=== PATIENT | female | born 1940 | race Caucasian/White ===

== ENCOUNTER 2017-01-30 08:06 | Emergency (ER) | payer BC ==
[~2017-01-30] VITALS: Ht 175.3 cm; Wt 83.9 kg
[2017-01-30 08:31] VITALS: BP 187/89
--- NOTE | 2017-01-30 08:46 | PHYS DOC ---
Past Medical History Past Medical History: Hypertension Additional Past Medical Histor: REFLUX, FIBROID CYSTS Past Surgical History: Hysterectomy Additional Past Surgical Histo: WRIST PLATE PLACED, CYST REMOVAL, CATERACTS Alcohol Use: None Drug Use: None Adult General Chief Complaint Chief Complaint: KNEE INJURY [facility] HPI Patient is a 76 year old female presents to the emergency department stating 3: 00 this morning she rolled over and twisted her left knee. She states that she is having pain with movement when she bends the knee and the posterior region of the knee. She also states originally she was having pain in the anterior lateral area at this time that pain has subsided. She denies taking anything for the pain and discomfort. She has however started using a walker to help with ambulation due to increased pain with weightbearing. Patient denies any numbness or tingling down to the lower extremity. She denies any previous history of knee problems. She denies having an orthopedic in which she can follow-up with. Review of Systems Review of Systems Constitutional: Denies fever or chills [] Eyes: Denies change in visual acuity, redness, or eye pain [] HENT: Denies nasal congestion or sore throat [] Respiratory: Denies cough or shortness of breath [] Cardiovascular: No additional information not addressed in HPI [] GI: Denies abdominal pain, nausea, vomiting, bloody stools or diarrhea [] : Denies dysuria or hematuria [] Musculoskeletal: Denies back pain. Complaint of left knee pain Integument: Denies rash or skin lesions [] Neurologic: Denies headache, focal weakness or sensory changes [] Endocrine: Denies polyuria or polydipsia [] Allergies Allergies Allergies Coded Allergies Type Severity Reaction Last Updated Verified No Known Drug Allergies 01/30/17 No Physical Exam Physical Exam Constitutional: Well developed, well nourished, no acute distress, non-toxic appearance. [] HENT: Normocephalic, atraumatic, bilateral external ears normal, oropharynx moist, no oral exudates, nose normal. [] Eyes: PERRLA, EOMI, conjunctiva normal, no discharge. [] Neck: Normal range of motion, no tenderness, supple, no stridor. [] Cardiovascular:Heart rate regular rhythm, no murmur [] Lungs & Thorax: Bilateral breath sounds clear to auscultation [] Skin: Warm, dry, no erythema, no rash. [] Back: No tenderness Extremities: Left posterior knee tenderness, no cyanosis, no clubbing, ROM intact, no edema. No swelling no discoloration noted around the knee area. Patient with full range of motion noted negative Stephanie been negative Leroy negative valgus. Peripheral pulses 2+ cap refill brisk less than 2 seconds. Good sensation noted to the lower extremity. Neurologic: Alert and oriented X 3, normal motor function, normal sensory function, no focal deficits noted. [] Psychologic: Affect normal, judgement normal, mood normal. [] Current Patient Data Vital Signs Vital Signs Date Time Temp Pulse Resp B/P (MAP) Pulse Ox O2 Delivery O2 Flow Rate FiO2 01/30/17 08:31 97.8 86 14 96 Room Air 97.8 EKG EKG [] Radiology/Procedures Radiology/Procedures [][facility] [address] [place] [address] IMAGING REPORT Signed PATIENT: DONN GARAY ACCOUNT: [id number] : 1940 LOCATION: ER AGE: 76 SEX: F EXAM STATUS: REG ER ORD. PHYSICIAN: SACHI LOPEZ APRN REASON: twisted left knee, ENTIRE LEFT KNEE PAIN SINCE 0400 THIS MORNING PROCEDURE: KNEE LEFT 4V Left knee, 4 views, 01/30/2017: History: Twisting injury, knee pain No fracture or dislocation is identified. There is minimal marginal spurring at the knee joint. There are mild degenerative changes at the patellofemoral articulation. No joint effusion is evident. IMPRESSION: 1. Mild degenerative change. 2. No acute bony abnormality is detected. DICTATED and SIGNED BY: SHAUN ALVA MD DATE: 01/30/17 0902 CC: SACHI LOPEZ APRN; KISHORE MEDELLIN MD; NON,STAFF ~ Course & Med Decision Making Course & Med Decision Making Pertinent Labs and Imaging studies reviewed. (See chart for details) X-ray was negative per radiology. Patient will be placed in a knee immobilizer with recommendations for ice packs on 20 minutes off 20 minutes several times today. Elevation as much as possible. Patient will be provided with orthopedic name and number to follow up with. Signs and symptoms to return back to emergency department been provided. Patient will be discharged home in stable condition. All questions and concerns for the patient been answered at the bedside. [] Karly Disclaimer Dragon Disclaimer This electronic medical record was generated, in whole or in part, using a voice recognition dictation system. Departure Departure Impression: Primary Impression: Left knee sprain Disposition: HOME, SELF-CARE Condition: STABLE Referrals: KISHORE MEDELLIN MD (PCP) ALBERTO HAIRSTON MD Patient Instructions: Knee Immobilizer, Kejw-mz-Fcpr, Knee Pain, Yqvb-fu-Ffli Additional Instructions: Activity as tolerated. Tylenol or ibuprofen for pain and discomfort. Wear the knee immobilizer until you follow-up with orthopedic. You may take the knee out of the immobilizer four times a day and to gentle active range of motion. Ice packs on 20 minutes off 20 minutes several times a day. Elevation as much as possible. Follow-up with orthopedic in the next week. Return back to emergency department sign symptoms of become worse. Problem Qualifiers Primary Impression: Left knee sprain Encounter type: initial encounter Involved ligament of knee: unspecified ligament Qualified Codes: S83.92XA - Sprain of unspecified site of left knee, initial encounter SACHI LOPEZ APRN Jan 30, 2017 08:46
--- NOTE | 2017-01-30 09:05 | RAD ---
Left knee, 4 views, 01/30/2017: History: Twisting injury, knee pain No fracture or dislocation is identified. There is minimal marginal spurring at the knee joint. There are mild degenerative changes at the patellofemoral articulation. No joint effusion is evident. IMPRESSION: 1. Mild degenerative change. 2. No acute bony abnormality is detected.
== END 2017-01-30 09:33 | disposition home or self-care (01) ==
LOC: ER 08:06
DX: S93.402A Sprain of unspecified ligament of left ankle, initial encounter (principal); I10 Essential (primary) hypertension; Z90.710 Acquired absence of both cervix and uterus; K21.9 Gastro-esophageal reflux disease without esophagitis; X50.9XXA Other and unspecified overexertion or strenuous movements or postures, initial encounter; Y93.89 Activity, other specified; Y99.8 Other external cause status; Y92.89 Other specified places as the place of occurrence of the external cause
CPT/HCPCS: 29505; 73564; 99284-25

== ENCOUNTER → 2017-05-31 | Outpatient (CLI) | payer BC ==
--- NOTE | 2017-05-31 12:17 | KCIC ---
Bone mineral density exam History: Osteopenia, postmenopausal Comparison: None Findings: Bone mineral density examination utilizing DEXA was performed. Left hip bone mineral density of 0.753 g/cm2 corresponds with a T score -1.5, Z score 0.4. The bone mineral density of the lumbar spine was 0.980 g/cm2 which corresponds with a T-score of -0.6, Z score 1.9. By World Congress on Osteoporosis criteria, a T score of 0 to-1 SD is considered to be within normal limits. A T score of -1 to -2.5 SD is considered osteopenia. A T score less than -2.5 SD is considered osteoporosis Impression: 1. There is osteopenia of the left hip. There is normal bone density of the lumbar spine. Electronically signed by: Nile Gadrner MD (05/31/2017 12:14 PM) [id number]
== END | disposition home or self-care (01) ==
LOC: KCIC DEXA 10:40
PROVIDERS: ATTEND Family Medicine
DX: M85.80 Other specified disorders of bone density and structure, unspecified site (principal); Z78.0 Asymptomatic menopausal state
CPT/HCPCS: 77080

== ENCOUNTER 2017-10-09 17:03 | Emergency (ER) | payer BC ==
[2017-10-09] MEDS: KETOROLAC 60 MG/2 ML INJ. IM (18:30)
[2017-10-09] MEDS: ONDANSETRON ODT 4 MG TAB.RAPDIS. PO (18:31)
[2017-10-09] MEDS: cloNIDine HCL 0.1 MG TABLET PO (18:32)
== END 2017-10-09 19:55 | disposition home or self-care (01) ==
LOC: ER 17:03
DX: M54.32 Sciatica, left side (principal); R11.2 Nausea with vomiting, unspecified; K21.9 Gastro-esophageal reflux disease without esophagitis; I10 Essential (primary) hypertension; Z90.710 Acquired absence of both cervix and uterus
CPT/HCPCS: 96372; 99283-25; J1885; Q0162

== ENCOUNTER → 2017-10-12 | Outpatient (CLI) | payer BC | END | disposition home or self-care (01) | LOC: ECHO 07:48 | DX: R01.1 Cardiac murmur, unspecified (principal) | CPT/HCPCS: 93306 ==

== ENCOUNTER → 2019-07-05 | Outpatient (CLI) | payer BC ==
[2017-10-09 18:32] VITALS: BP 203/96
[~2019-07-05] MED LIST: METH4TAB2 PO; ONDA4TAB10 SL
--- NOTE | 2019-07-05 10:26 | RAD ---
Examination: DIGITAL DIAGNOSTIC RT, US GUID NDL PLACE/ASPI/BX History: Right breast mass. Comparison/Correlation: 05/29/2019 right breast ultrasound exam performed at diagnostic imaging centers Findings: Risks and benefits of ultrasound-guided core biopsy were discussed with patient and informed consent was obtained. ChloraPrep was utilized about the right upper breast and periareolar region. Sterile drapes were utilized. Sterile probe cover and sterile gel visualized. Approximately 5 cc 1 percent lidocaine was administered superomedial to the lesion and along its lateral aspect. Introducer was placed. 14-gauge core biopsy needle was utilized. Total of 5 passes were made into the 12:00 mass with ultrasound guidance. Samples were placed in a formalin jar. Biopsy clip marker was then placed into the mass. Patient had a mild amount of bleeding during the exam. MLO and CC images of the right breast were obtained and reviewed on an mammography workstation. Biopsy clip marker is present within the mass the right breast 12:00 region. No hematoma identified. Impression: Successful ultrasound-guided right breast mass biopsy with clip marker placement. Electronically signed by: Boone Lloyd MD (07/05/2019 10:24 AM) [facility]
--- NOTE | 2019-07-09 13:07 | PATHOLOGY ---
[facility] Accession Number: [id number] . 01 Material submitted: . breast - RIGHT BREAST TISSUE 12:00 3CMFN. Modifiers: right, 12:00 . 01 Clinical history: . Right breast mass . 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 - SIZE OF INVASIVE CARCINOMA: 1.5 CM, AT LEAST. - POSSIBLE TINY FOCUS OF CRIBRIFORM DUCTAL CARCINOMA IN SITU. - Microcalcification present focally in association with invasive carcinoma. . (Please see comment) LBQ 07/08/2019 1021 Local . 02 Comment: The findings in this case were relayed to Sylvia at Dr. Charlie Dozier's office on 07/08/2019. . This case has also been reviewed by Kerline Malone M.D. who agrees with the diagnosis. . The tumor present in block A1 will be sent for breast prognostic studies. The results will be issued in an addendum report. (SKM/db; 07/08/2019) . 02 Electronically signed: . Nitesh Dykes MD, Pathologist NPI- [id number] . 01 Gross description: . Received in formalin labeled "Layla Loo, right breast 12:00 3 cm FN," are 5 distinct needle cores of yellow-alexander fibrofatty tissue ranging from 0.5-1.7 cm in length and approximately 0.1 cm in diameter. The tissue is submitted in its entirety in cassette A1-A3. The cold ischemic time is 5 minutes. The total formalin fixation time is greater than 6 hours and less than 72 hours. (TSD; 07/05/2019) TOB/TOB 07/05/2019 1806 Local . 02 Pathologist provided ICD-10: C50.911 . 02 CPT . 478790 Specimen Comment: A courtesy copy of this report has been sent to [phone], [phone] Specimen Comment: [id number], Specimen Comment: Report sent to , and Performed at: [address] [facility], [place] [id number] MD Salvador Nassar MD Phone: [phone] Performed at: [facility] [address], [place] [id number] MD Venkat Ayala MD Phone: [phone]
== END | disposition home or self-care (01) ==
LOC: US 13:16
PROVIDERS: ATTEND Surgery
DX: N63.10 Unspecified lump in the right breast, unspecified quadrant (principal); D05.11 Intraductal carcinoma in situ of right breast; R92.8 Other abnormal and inconclusive findings on diagnostic imaging of breast; R92.0 Mammographic microcalcification found on diagnostic imaging of breast
CPT/HCPCS: 19083; 77065; C1713; 19081; 76942

== ENCOUNTER → 2019-07-23 | Outpatient (CLI) | payer BC ==
[2017-10-09 18:32] VITALS: BP 203/96
[~2019-07-23] MED LIST changes: +CALC1CAP6 PO; +CART1TAB4 PO; +CELE200C PO; +CHOL500062 PO; +CRAN250C PO; +FERR-36 PO; +HYDR-2761 PO; +LACT1CAP6 PO; +LISI-334 PO; +OMEG100021 PO; +OMEP40CA45 PO
--- NOTE | 2019-07-23 15:10 | RAD ---
DATE: July 23, 2019 EXAM: DIGITAL DIAGNOSTIC LT, BREAST LEFT SONOGRAPHY HISTORY: History of right breast cancer. Density of the upper aspect of left breast. COMPARISON: May 29, 2019 and May 09, 2018. This study was interpreted with the benefit of Computerized Aided Detection (CAD). DIAGNOSTIC LEFT-SIDED MAMMOGRAPHY FINDINGS: Focal digital compression views of the left breast were performed in the CC and MLO projections. Coarse benign-appearing calcifications are again evident within the upper aspect of the left breast which are stable. No mass or spiculation or architectural distortion is seen. LEFT BREAST SONOGRAPHY: High-resolution sonography of the upper one half of the left breast was performed. No focal sonographic abnormality is seen. Sonography of the left axillary region was performed and no abnormality is seen. IMPRESSION: No new mammographic abnormality of the left breast. No focal sonographic abnormality of the upper left breast. BI-RADS CATEGORY: 2 BENIGN FINDING RECOMMENDED FOLLOW-UP: 12M 12 MONTH FOLLOW-UP Note-the patient has history of right breast cancer which is scheduled to be treated next week. Therefore, this BI-RADS category 2 is for the left breast only. Therefore, the recommended follow-up is for the left breast as well. Follow-up of the right breast may be different. PQRS compliance statement: Patient information was entered into a reminder system with a target due date May 30, 2020 for the next mammogram. Mammography is a sensitive method for finding small breast cancers, but it does not detect them all and is not a substitute for careful clinical examination. A negative mammogram does not negate a clinically suspicious finding and should not result in delay in biopsying a clinically suspicious abnormality. "Our facility is accredited by the [employer] Mammography Program."
== END | disposition home or self-care (01) ==
LOC: MAMMO 15:21
PROVIDERS: ATTEND Radiology Radiation Oncology
DX: R92.1 Mammographic calcification found on diagnostic imaging of breast (principal); Z85.3 Personal history of malignant neoplasm of breast
CPT/HCPCS: 76641; 77065

== ENCOUNTER → 2019-07-24 | Outpatient (CLI) | payer BC ==
[2017-10-09 18:32] VITALS: BP 203/96
[2019-07-24 13:42] LABS: BASO # 0.1 x10^3/uL (0.0-0.2); BASO % 1 % (0-3); EOS # 0.1 x10^3/uL (0.0-0.7); EOS % 1 % (0-3); HEMATOCRIT 38.6 % (36.0-47.0); HEMOGLOBIN 12.8 g/dL (12.0-15.5); LYMPH # 1.6 x10^3/uL (1.0-4.8); LYMPH % 21 % (24-48); MEAN CORPUSCULAR HEMOGLOBIN 31 pg (25-35); MEAN CORPUSCULAR HGB CONC 33 g/dL (31-37); MEAN CORPUSCULAR VOLUME 94 fL (79-100); MONO # 0.5 x10^3/uL (0.0-1.1); MONO % 6 % (0-9); NEUT # 5.3 x10^3/uL (1.8-7.7); NEUT % 70 % (31-73); PLATELET COUNT 253 x10^3/uL (140-400); RED BLOOD COUNT 4.13 x10^6/uL (3.50-5.40); WHITE BLOOD COUNT 7.6 x10^3/uL (4.0-11.0)
[2019-07-24 13:52] LABS: ALBUMIN 3.7 g/dL (3.4-5.0); CALCIUM 9.1 mg/dL (8.5-10.1); CREATININE 0.9 mg/dL (0.6-1.0); GFR 60.4; POTASSIUM 4.1 mmol/L (3.5-5.1)
== END | disposition home or self-care (01) ==
LOC: SURGPAT 12:36
PROVIDERS: ATTEND Surgery
DX: Z01.818 Encounter for other preprocedural examination (principal); C50.911 Malignant neoplasm of unspecified site of right female breast
CPT/HCPCS: 36415; 80048; 82040; 85025

== ENCOUNTER 2019-07-29 06:10 | Inpatient (IN) | payer BC ==
[~2019-07-29] VITALS: Ht 175.3 cm; Wt 78.5 kg
[2019-07-29] VITALS (9 sets, daily range): BP systolic 109–161; BP diastolic 54–89
[~2019-07-29 06:10] MED LIST changes: -HYDR-2761 PO
[2019-07-29] MEDS ORDERED: fentaNYL PF VIAL 100 MCG/2 ML VIAL IV PRN ×2 (07:00)
[2019-07-29] MEDS ORDERED: LIDOCAINE 1% PF 2 ML VIAL. ID PRN (07:00)
[2019-07-29] MEDS ORDERED: ONDANSETRON PF 4 MG/2 ML VIAL. IV PRN (07:00)
[2019-07-29] MEDS ORDERED: PROCHLORPERAZINE 10 MG/2 ML VIAL. IV PRN (07:00)
[2019-07-29] MEDS ORDERED: HYDROmorphone 2 MG/ML VIAL IV PRN ×2 (07:00→11:30)
[2019-07-29] MEDS ORDERED: IV RINGERS,LACTATED 1000ML 1,000 ML IV SCH (07:00)
[2019-07-29] MEDS ORDERED: MORPHINE SULFATE 2 MG/ML VIAL. IV PRN (07:00)
[2019-07-29] MEDS ORDERED: BUPIVACAINE-EPI 0.5%-1:200000 MPF 30 ML VIAL. ONE (07:50)
[2019-07-29] MEDS ORDERED: ISOSULFAN BLUE 1% 50 MG/5 ML VIAL. SQ ONE (07:51)
[2019-07-29] MEDS ORDERED: BUPIVACAINE MPF 0.5% 30 ML VIAL. ONE (07:51)
[2019-07-29] MEDS ORDERED: ceFAZolin SODIUM IV Push 1 GM VIAL. IVP PRN (08:00)
[2019-07-29] MEDS ORDERED: fentaNYL PF VIAL 100 MCG/2 ML VIAL ONE (08:11)
[2019-07-29] MEDS ORDERED: PROPOFOL 20 ML IV ONE (08:11)
[2019-07-29] MEDS ORDERED: LIDOCAINE 2% PF 5 ML VIAL. ONE (08:11)
--- NOTE | 2019-07-29 09:17 | RAD ---
Examination: SENTINEL NODE INJECTION History: Right breast cancer Comparison/Correlation: None Findings: Risks and benefits of injection for sentinel node purposes were discussed with the patient and informed consent was obtained. Right breast cleansing with ChloraPrep was performed. Approximately 1 cm from the areola at the 12:00 region, 900 uCi technetium 99m Lymphoseek was intradermally administered. The patient tolerated the procedure well without immediate complications. Impression: Successful intradermal administration of Lymphoseek. PQRS Compliance Statement: One or more of the following individualized dose reduction techniques were utilized for this examination: 1. Automated exposure control 2. Adjustment of the mA and/or kV according to patient size 3. Use of iterative reconstruction technique Electronically signed by: Boone Lloyd MD (07/29/2019 9:14 AM) [email or web address]
--- NOTE | 2019-07-29 10:04 | RAD ---
Examination: US GUID NDL PLACE/ASPI/BX, DIGITAL DIAGNOSTIC RT History: Right breast 12:00 region malignancy Comparison/Correlation: 07/05/2019 ultrasound-guided biopsy images of the right breast Findings: Risks and benefits of ultrasound-guided right breast needle localization were discussed with the patient and informed consent was obtained. Cleansing with ChloraPrep was performed. Sterile drapes were placed. Sterile probe cover and sterile gel were utilized. Approximately 5 cc 1 percent lidocaine was administered from the lateral approach. Under ultrasound guidance, a 5 cm needle-wire combination was introduced into the 12 o'clock mass. The wire was deployed and needle was then removed. MLO and CC images of the right breast were obtained. Images were viewed on a mammographic workstation. Scattered fibroglandular densities are present. Wire is identified within the mass with the tip extending slightly medially and external to the mass. Biopsy clip marker is evident within the mass. No hematoma. Impression: Successful wire localization of the known right breast 12:00 mass. The patient tolerated the procedure well without immediate palpitations. Electronically signed by: Boone Lloyd MD (07/29/2019 10:01 AM) [email or web address]
[2019-07-29] MEDS ORDERED: SEVOFLURANE 61 TO 120 MINUTES. IH ONE (10:13)
[2019-07-29] MEDS ORDERED: DEXAMETHASONE SOD PHOS 4 MG/ML VIAL ONE (10:13)
[2019-07-29] MEDS ORDERED: ONDANSETRON PF 4 MG/2 ML VIAL. ONE (10:20)
--- NOTE | 2019-07-29 11:02 | RAD ---
Examination: TISSUE SPECIMEN MAMMOGRAM History: Right breast 12:00 mass. Comparison/Correlation: 07/29/2019 diagnostic mammogram of the right breast Findings: Specimen radiograph was obtained and reviewed on a mammographic workstation. Wires present within the mass of interest. Biopsy clip marker is also seen. Impression: Successful excision of the right breast mass. Electronically signed by: Boone Lloyd MD (07/29/2019 10:59 AM) [email or web address]
[2019-07-29] MEDS ORDERED: FAMOTIDINE 20 MG/2 ML VIAL ONE (11:07)
[2019-07-29] MEDS ORDERED: IV NORMAL SALINE 1000ML BAG 1,000 ML IV SCH (11:18)
--- NOTE | 2019-07-29 11:25 | PDOC ---
BRIEF OPERATIVE NOTE Date: Jul 29, 2019 Pre-Op Diagnosis invasive carcinoma right breast Post-Op Diagnosis same Procedure Performed right axillary sentinel LN biopsy right segmental mastectomy after needle localization Surgeon Jacoby Flat Machine Cutter Jazmyn FERMIN Anesthesia Type: General (LMA) Blood Loss 10cc IV Fluid 1000cc Specimens Obtained right axillary sentinel LN right breast mass 12:00 axillry tissue inferior/lateral tissue Findings specimen x ray showed mass and marker in the specimen Complications none GILBERTO GOMEZ MD Jul 29, 2019 11:25
[2019-07-29] MEDS ORDERED: NALOXONE 0.4 MG/ML VIAL. IV PRN (11:30)
[2019-07-29] MEDS ORDERED: 0.9 % SODIUM CHLORIDE 10 ML DISP.SYRIN. IV PRN (11:30)
[2019-07-29] MEDS ORDERED: HYDROcodone/APAP 5/325MG 1 TAB TABLET PO PRN ×2 (11:30)
[2019-07-29] MEDS ORDERED: ONDANSETRON PF 4 MG/2 ML VIAL. IVP PRN (11:30)
--- NOTE | 2019-07-29 13:35 | OP ---
DATE OF SURGERY: 07/29/2019 PREOPERATIVE DIAGNOSIS: Invasive carcinoma, right breast. POSTOPERATIVE DIAGNOSIS: Invasive carcinoma, right breast. PROCEDURE: 1. Right axillary sentinel lymph node biopsy. 2. Right segmental mastectomy after needle localization. SURGEON: Charlie Gomez MD. MOTTLE LAY UP OPERATOR: JENY Rahman. ANESTHESIA: General LMA. BLOOD LOSS: 10. INTRAVENOUS FLUIDS: 1 liter. OPERATIVE REPORT: The patient was taken to the mammography suite where she underwent localization of her previously biopsied malignancy and was injected for sentinel node identification. She was then brought to the OR, given a general LMA and the right breast, arm and chest were prepped and draped in usual sterile fashion. A 4 mL of Lymphazurin was injected circumareolarly from 10 o'clock to 1 o'clock and the breast gently massaged for 4 minutes. Using the C-Trak probe as a guide, an axillary incision was made over an area of activity and dissection carried down over a blue, "hot" node, which was harvested and sent to pathology for frozen section. While awaiting those results, a circumareolar incision was made. The localization needle delivered into the wound and the tissue around the tip of the wire, comprising the area of concern was sharply excised. Specimen sent to Radiology where the x-ray showed the localization wire, the biopsy marker and the mass. An area of tissue inferior lateral to the original biopsy was harvested as well and the wound was checked for hemostasis. Intraoperative report of the sentinel nodes were negative and as such, a 15-Sammar[place] round Glen drain was left in the axilla, brought out an inferior lateral stab wound, sewn with a silk stitch. When a correct sponge count was obtained, the axillary wound was closed with a subcuticular 4-0 Monocryl. Breast incision closed with interrupted 3-0 Vicryl and the breast tissue and a subcuticular 3-0 Monocryl with Steri-Strips for the skin. Sterile dressings applied. The patient awakened from her anesthetic and taken to the recovery room in satisfactory condition. CHARLIE GOMEZ MD DR: DAVE/patricia JOB#: [id number] / [id number] LANA Moe MD
[2019-07-29] MEDS: PANTOPRAZOLE 40 MG TABLET.DR. PO SCH (15:04)
[2019-07-29] MEDS: LACTOBACILLUS RHAMNOSUS GG 1 CAPSULE. PO SCH (17:34)
[2019-07-29] MEDS: LISINOPRIL 20 MG TABLET PO SCH (17:34)
[2019-07-29] MEDS: CELECOXIB 100 MG CAPSULE. PO SCH (17:34)
[2019-07-29] MEDS: POTASSIUM CL 20MEQ-0.45% NACL 1,000 ML IV SCH ×2 (17:34→23:48)
[2019-07-29] MEDS ORDERED: ENOXAPARIN 40 MG/0.4 ML SYRINGE. SQ SCH (21:00)
[2019-07-29] MEDS: DOCUSATE SODIUM 100 MG CAPSULE. PO SCH (21:02)
[2019-07-30 03:00] VITALS: BP 139/68
[2019-07-30 07:00] VITALS: BP 139/75
[2019-07-30] MEDS: DOCUSATE SODIUM 100 MG CAPSULE. PO SCH (08:48)
[2019-07-30 08:49] VITALS: BP 139/75
[2019-07-30] MEDS: LACTOBACILLUS RHAMNOSUS GG 1 CAPSULE. PO SCH (08:49)
[2019-07-30] MEDS: LISINOPRIL 20 MG TABLET PO SCH (08:49)
[2019-07-30] MEDS: PANTOPRAZOLE 40 MG TABLET.DR. PO SCH (08:49)
[2019-07-30] MEDS: CELECOXIB 100 MG CAPSULE. PO SCH (08:50)
[2019-07-30] MEDS ORDERED: HYDR-2761 PO (09:49)
--- NOTE | 2019-07-30 09:51 | DISCH ---
DISCHARGE INSTRUCTIONS Condition on Discharge Condition on Discharge: Stable Activity After Discharge Activity Instructions for Disc: Activity as tolerated Bathing Instructions: Shower-keep dressing dry Lifting Instructions after Dis: No heavy lifting, No pulling or pushing Driving Instructions after Dis: Do not drive Diet after Discharge Diet after Discharge: Regular Wound Incision Care Wound/Incision Care: May get incision wet, No wound care needed Other wound/incision instructi: Drain care as instructed Contacting the DRGilma after DC Call your doctor for: Concerns you may have Follow-Up Follow up with: Dr Dozier 1 week, call to schedule [phone] ABILIO RAMIREZ APRN Jul 30, 2019 09:51
--- NOTE | 2019-07-30 09:53 | PDOC ---
SURGICAL PROGRESS NOTE Subjective tolerating diet some constipation pain minimal Vital Signs Vital Signs Date Time Temp Pulse Resp B/P (MAP) Pulse Ox O2 Delivery O2 Flow Rate FiO2 07/30/19 08:49 81 139/75 07/30/19 07:00 97.7 18 94 Room Air 97.7 07/29/19 12:00 2 I&O Intake and Output 07/30/19 07:00 Intake Total 2480 ml Output Total 385 ml Balance 2095 ml Intake Oral 1380 ml IV Total 1100 ml Output Urine Total 350 ml Drainage Total 25 ml Estimated Blood Loss 10 ml General: Alert, Oriented X3, Cooperative Skin: Other (breast incisions c/d/i, drain serosang) Assessment/Plan plan dc home drain teaching prior to discharge, FU in clinic next week script e ABILIO Smart APRN Jul 30, 2019 09:53
--- NOTE | 2019-07-30 11:32 | NUR ---
SW following. Discussed with RN, pt is from home with family. RN advised no SW needs. Pt is discharging home today with self care.
--- NOTE | 2019-07-30 12:07 | NUR ---
Discharge Note: DONN GARAY [address] [place] [address] Discharge instructions and discharge home medications reviewed with Patient and a copy given. All questions have been answered and understanding verbalized. The following instructions and handouts were given: Diet, activity, medication list and follow up instructions provided to patient and patient's daughter. Discontinued lines and drains: Peripheral IV discontinued and catheter intact. Patient discharged to Home or Self Care with Family Member via Ambulated
--- NOTE | 2019-07-30 13:11 | PDOC3 ---
Discharge Summary Visit Information Date of Admission: Jul 29, 2019 Date of Discharge: Jul 30, 2019 Admitting Diagnosis Comment: invasive carcinoma right breast Final Diagnosis same Brief Hospital Course Allergies Allergies Coded Allergies Type Severity Reaction Last Updated Verified No Known Drug Allergies 01/30/17 No Vital Signs Vital Signs Date Time Temp Pulse Resp B/P (MAP) Pulse Ox O2 Delivery O2 Flow Rate FiO2 07/30/19 08:49 81 139/75 07/30/19 07:00 97.7 18 94 Room Air 97.7 07/29/19 12:00 2 Brief Hospital Course Ms. Loo is a 78 old lady who presented for right breast lumpectomy with SLN biopsy. Discharge Information Condition at Discharge: Stable Follow Up: As Needed (three days for drain removal) Disposition/Orders: D/C to Home Scheduled Calcium Carbonate/Vitamin D3 (Calcium 600 + Vit D Softgel) 1 Each Capsule, 1 EACH PO DAILY for bone health, (Reported) Entered as Reported by: RAMON MCLEOD on 07/18/19951 Last Action: HELD on 07/29/191117 by GILBERTO GOMEZ Cartilage/Collagen/Bor/Hyalur (Move Free Ultra Tablet) 1 Each Tablet, 1 TAB PO DAILY for arthritis, (Reported) Entered as Reported by: ESTEFANI TAYLOR on 07/24/19 1303 Last Action: HELD on 07/29/191117 by GILBERTO GOMEZ Celecoxib (Celebrex) 200 Mg Capsule, 200 MG PO 2caps po daily for arthritis, (Reported) Entered as Reported by: RAMON MCLEOD on 07/18/19951 Last Action: Converted on 07/29/191117 by GILBERTO GOMEZ Cholecalciferol (Vitamin D3) (Vitamin D3) 5,000 Unit Tab.rapdis, 5,000 UNIT PO DAILY for supplement, (Reported) Entered as Reported by: RAMON MCLEOD on 07/18/19951 Last Action: HELD on 07/29/191117 by GILBERTO GOMEZ Cranberry Extract (Cranberry) 250 Mg Capsule, 500 MG PO DAILY for prevent uti, (Reported) Entered as Reported by: RAMON MCLEOD on 07/18/19951 Last Action: HELD on 07/29/191117 by GILBERTO GOMEZ Ferrous Sulfate (Iron) 325 Mg Tablet, 325 MG PO DAILY for anemia, (Reported) Entered as Reported by: RAMON MCLEOD on 07/18/19951 Last Action: HELD on 07/29/191117 by GILBERTO GOMEZ Lactobacillus Acidophilus (Probiotic) 1 Each Capsule, 1 EACH PO DAILY for gi, (Reported) Entered as Reported by: ESTEFANI TAYLOR on 07/24/19 1302 Last Action: Converted on 07/29/191117 by GILBERTO GOMEZ Lisinopril (Lisinopril) 20 Mg Tablet, 20 MG PO DAILY for htn, (Reported) Entered as Reported by: RAMON MCLEOD on 07/18/19951 Last Action: Continued on 07/29/191117 by GILBERTO GOMEZ Scheller-3/Dha/Epa/Fish Oil (Fish Oil 1,000 mg Softgel) 1,000 Mg Capsule, 1,000 MG PO DAILY for supplement, (Reported) Entered as Reported by: RAMON MCLEOD on 07/18/19951 Last Action: HELD on 07/29/191117 by GILBERTO GOMEZ Omeprazole (Omeprazole) 40 Mg Capsule.dr, 40 MG PO DAILY for gerd, (Reported) Entered as Reported by: RAMON MCLEOD on 07/18/19951 Last Taken: Unknown Dose on 07/29/19 0430 Last Action: Converted on 07/29/191117 by GILBERTO GOMEZ Scheduled PRN Hydrocodone Bit/Acetaminophen (Hydrocodone-Apap 5-325 ) 1 Tab Tablet, 1 TAB PO PRN Q4HRS PRN for MILD PAIN 1-3, #30 Ref 0 Prescribed by: Julia Byrd on 07/30/1950 GILBERTO GOMEZ MD Jul 30, 2019 13:11
--- NOTE | 2019-08-01 14:07 | PATHOLOGY ---
[facility] Accession Number: [id number] . 01 Material submitted: . PART A: lymph node - RIGHT AXILLARY SENTINEL NODE, HOT AND BLUE - FS. Modifiers: right, axillary tail PART B: breast - RIGHT BREAST MASS WITH NEEDLE LOCALIZATION, 12:00. Modifiers: right PART C: axillary tail of breast - AXILLARY TISSUE. Modifiers: right PART D: breast - INFERIOR LATERAL TO NUMBER ONE, RIGHT BREAST. Modifiers: right, inferior, lateral . 01 Clinical history: . right breast cancer . 02 Frozen section diagnosis: . INTRAOPERATIVE CONSULTATION WITH FROZEN SECTION (Venkat Ayala) . FSA1. Right axillary sentinel node hot and blue: - Two lymph nodes negative for tumor. . The results are reported to Dr. Dozier in the operating room. . . Frozen section performed at [facility], [address] [place] [address], [place] [address]. . . GROSS DESCRIPTION The specimen is received fresh for intraoperative consultation and is designated "right axillary sentinel node hot and blue". This consists of an ovoid-shaped segment of yellow fatty tissue showing focal bluish discoloration, measuring up to 2.5 x 1.8 x 0.9 cm. Sectioning reveals a yellow fatty node showing bluish discoloration measuring up to 1.3 cm. There may be an additional small node showing bluish discoloration measuring up to 0.3 cm. All is submitted for frozen section as FSA1. The tissue remaining from frozen section is submitted for permanent sections as A1. (JPM:anatoliy; 07/29/2019) MARIELENA/MALCOM . 02 Diagnosis: A. Lymph nodes and adipose tissue, right axillary sentinel node hot and blue: - Two lymph nodes negative for tumor (0/2). . B. Breast tissue, wire localized right breast lumpectomy: - INVASIVE DUCTAL CARCINOMA, HISTOLOGIC GRADE 1, FORMING A WELL CIRCUMSCRIBED TUMOR MASS MEASURING 1.7 CM IN GREATEST DIMENSION. - DUCTAL CARCINOMA IN SITU, INTERMEDIATE GRADE, CRIBRIFORM TYPE, FOCAL, ADJACENT TO INVASIVE CARCINOMA. - INVASIVE CARCINOMA IS LESS THAN 1 MM FROM THE CLOSEST INKED MARGIN OF RESECTION. - DCIS IS APPROXIMATELY 1 MM FROM THE CLOSEST INKED MARGIN OF RESECTION. - Previous biopsy site changes. - Fibrocystic changes. - Sclerosing adenosis, multifocal. . C. Lymph nodes and adipose tissue, axillary tissue: - Five lymph nodes negative for tumor (0/5). . D. Breast tissue, inferior and lateral to right breast lumpectomy: - Focal previous biopsy site changes. - Fibrocystic changes with focal apocrine metaplasia. . . . . Surgical Pathology Cancer Case Summary . INVASIVE CARCINOMA OF THE BREAST: Resection . Procedure ___ Other (specify): Wire-localized lumpectomy . Specimen Laterality ___ Right . . + Tumor Site (select all that apply, as appropriate) (Note B) + ___ Clock position (specify): 12:00 . . Tumor Size ___ Greatest dimension of largest invasive focus >1 mm: 17 mm . . Histologic Type ___ Invasive carcinoma of no special type (invasive ductal carcinoma, not otherwise specified) . . Histologic Grade (Chapis Histologic Score) . Glandular (Acinar)/Tubular Differentiation ___ Score 1 (>75% of tumor area forming glandular/tubular structures) . Nuclear Pleomorphism ___ Score 2 (cells larger than normal with open vesicular nuclei, visible nucleoli, and moderate variability in both size and shape) . Mitotic Rate ___ Score 2 . Overall Grade ___ Grade 1 (scores of 3, 4, or 5) . . + Tumor Focality + ___ Single focus of invasive carcinoma . Ductal Carcinoma In Situ (DCIS) ___ Present + ___ Negative for extensive intraductal component (EIC) . . + Number of blocks with DCIS: 1 + Number of blocks examined: 22 . . + Architectural Patterns + ___ Cribriform . . + Nuclear Grade + ___ Grade II (intermediate) . + Necrosis + ___ Present, focal (small foci or single cell necrosis) . + Lobular Carcinoma In Situ (LCIS) + ___ No LCIS in specimen . . Margins . Invasive Carcinoma Margins ___ Uninvolved by invasive carcinoma Distance from closest margin (millimeters): Less than 1 mm . + Specify closest margin(s): ___ Cannot be determined (specimen not oriented). . DCIS Margins ___ Uninvolved by DCIS . Distance from closest margin (millimeters): 1 mm . + Distance from closest margins (specify closest margin: Cannot be determined (specimen not oriented) . . Regional Lymph Nodes ___ Uninvolved by tumor cells Total Number of Lymph Nodes Examined: 7 Number of [place] Nodes Examined: 2 . . + Lymphovascular Invasion + ___ Not identified . . Pathologic Stage Classification (pTNM, AJCC 8th Edition) . Primary Tumor (pT) ___ pT1c:Tumor >10 mm but =20 mm in greatest dimension . . Regional Lymph Nodes (pN) (choose a category based on lymph nodes received with the specimen; immunohistochemistry and/or molecular studies are not required) . ___ pN0:No regional lymph node metastasis identified or ITCs only# . . + Additional Pathologic Findings: See diagnoses . . + Microcalcifications + ___ Present in invasive carcinoma + ___ Present in non-neoplastic tissue . + Clinical History + ___ Other (specify): Mass . . + Radiologic Finding + ___ Mass or architectural distortion . (JPM:mml; 08/01/2019) LBQ 08/01/2019 1138 Local . 02 Comment: The sentinel lymph node is examined at multiple levels. An immunoperoxidase stain is also obtained on block A1 and yields the following results: . AE1/AE3 (A1) - Two lymph nodes negative for tumor . There are five lymph nodes within the "axillary tissue" which are negative for tumor. Thus, there are a total of seven lymph nodes which are negative for tumor. (JPM/db; 07/31/2019) . Special stain: Immunoperoxidase stain for AE1/AE3 on A1 . 02 Electronically signed: . Venkat Aayla MD, Pathologist NPI- [id number] . 01 Gross description: . PLEASE SEE GROSS DESCRIPTION UNDER FROZEN SECTION HEADING. . B. The specimen is received in formalin, labeled "Layla Loo, right breast mass with needle localization 12:00" and consists of a 44 g lumpectomy specimen measuring 6.5 x 4.9 x 2.0 cm. Protruding from one aspect is a localization wire which designates 12:00. 12:00 is inked yellow and the rest of the specimen black. It is serially sectioned into 16 slices revealing a circumscribed pink-fernando mass in slices 7-11 measuring 1.7 x 1.6 x 1.2 cm. The mass abuts the nearest margin and is greater than 2 cm from 12:00. Present within the mass is a previous biopsy cavity. Surrounding the mass extending towards the 12:00 aspect are extensive previous biopsy changes. No distinct additional mass lesions identified. The uninvolved parenchyma shows extensive dense fibrotic streaks. The specimen is representatively submitted as follows: . B1: 12:00, perpendicular B2-B3: Slice 7, bisected B4-B6: Slice 8, trisected B7-B9: Slice 9, trisected B10-B12: Slice 10, trisected B13-B15: Slice 11, trisected B16-B18: Slice 6, trisected, just 12:00 from mass B19-B21: Slice 12, trisected just 6:00 from mass B22: Presumed 6:00 margin, perpendicular . The specimen was obtained at 10:47 AM on 07/29/2019 and placed in formalin at 11 AM. The cold ischemic time is 13 minutes and the total formalin fixation time is greater than 6 hours but less than 72 hours. . C. The specimen is received in formalin, labeled "Layla Loo, axillary tissue" and consists of 3 segments of yellow-orange lobulated tissue measuring 5.8 x 4.5-2.0 cm. Present within are multiple lymph node candidates measuring up to 2.0 cm which are entirely submitted as follows: . C1-C4: Largest lymph node, serially sectioned C5: One trisected lymph node C6: One bisected lymph node C7: 4 intact lymph node candidates . D. The specimen is received in formalin, labeled "Layla Loo, inferior lateral to #1 (part B-right breast mass per problem specimen form)" and consists of an unoriented segment of yellow orange breast tissue weighing 2 g and measuring 2.5 x 2.2 x 1.1 cm. It is inked black and sectioned revealing extensive previous biopsy changes. The specimen is entirely submitted in D1-D3. (SDY; 07/30/2019) SYU/QMS 07/31/2019 1701 Local . 02 Pathologist provided ICD-10: C50.911, D05.11, N60.11, N60.21 . 02 CPT . 067290, [id number], [id number], [id number], [id number], [id number] Specimen Comment: A courtesy copy of this report has been sent to [phone], [phone] Specimen Comment: [id number] Specimen Comment: Report sent to and Performed at: [facility] [address] [facility] [address], [place] [id number] MD Salvador Nassar MD Phone: [phone] Performed at: 02 [facility] [address] [place], [place] [id number] MD Venkat Ayala MD Phone: [phone]
== END 2019-07-30 11:57 | disposition home or self-care (01) | DRG 581 ==
LOC: US 06:10 → 4 NORTH 11:51
PROVIDERS: ADMIT Surgery; ATTEND Surgery
PROC: 0HBT0ZZ Excision of Right Breast, Open Approach (ICD-10-PCS; principal; 2019-07-29 09:30)
PROC: 07B50ZX Excision of Right Axillary Lymphatic, Open Approach, Diagnostic (ICD-10-PCS; 2019-07-29 09:30)
PROC: 0H9T3ZX Drainage of Right Breast, Percutaneous Approach, Diagnostic (ICD-10-PCS; 2019-07-29 09:30)
DX: C50.911 Malignant neoplasm of unspecified site of right female breast (principal); K59.00 Constipation, unspecified; Z90.710 Acquired absence of both cervix and uterus; I10 Essential (primary) hypertension
CPT/HCPCS: 38792; 76098; 76942; 77065; 96374; A7015; A9520; J0690; J1100; J1650; J2001; J2405; J2704; J3010; J3490; J7120; Q9968; G0378

== ENCOUNTER → 2019-12-19 | Outpatient (CLI) | payer BC ==
[~2019-12-19] MED LIST changes: +HYDR-2761 PO
--- NOTE | 2019-12-19 11:41 | KCIC ---
EXAM: DUAL ENERGY X-RAY ABSORPTIOMETRY (DEXA). HISTORY: Postmenopausal screening. FINDINGS: The lowest measured T-score is -1.4 in the left femur, based on a bone mineral density of 0.771 g/cm^2. Refer to the worksheets for full detail. In comparison with the prior study of 05/31/2017, average bone mineral density at the lumbar spine has changed +4.9%, while the average density at the hips has changed +2.3%. IMPRESSION: Low bone mass. Bone mineral density yields a T-score between -1.0 and -2.5. Fracture risk is increased. FRAX was not calculated. METHODOLOGY: Dual energy x-ray absorptiometry was performed to measure bone mineral density. The following analysis is based on the 2019 Official Positions of the International Society for Clinical Densitometry: Measurements of the hips and the average of L1-L4 are preferred. When the spine and/or hip cannot be feasibly measured or interpreted, or in the setting of hyperparathyroidism, distal radial bone mineral density may be measured. The lumbar spine T-score is based on the average bone mineral density of L1-L4. In the setting of artifact or anatomic abnormality, some lumbar levels may be excluded, and the remaining levels used for calculation. A single lumbar level is not used for diagnosis, and if only a single level is available for assessment, another anatomic site will be used to assign a diagnosis. The hip T-score is based on the bone mineral density measurement of the femoral neck or total proximal femur of either side, whichever is lowest. Bilateral mean values are not used for diagnosis. The forearm T-score is derived from 33% of the distal radius of the nondominant forearm. For postmenopausal and perimenopausal women, and men age 50 or older, of all ethnic groups, T-scores are calculated through comparison of the current measurement with the NHANES III database standard for females aged 20-29 years. The lowest T-score of the evaluated anatomic sites is used to assign a diagnosis based on the World Health Organization densitometric classification. In premenopausal females and males younger than age 50, a Z-score is calculated based on population specific reference data for patient sex and self-reported ethnicity. Electronically signed by: Aviva Velasquez MD (12/19/2019 11:39 AM) [id number]
== END ==
LOC: KCIC DEXA 10:24
PROVIDERS: ATTEND Internal Medicine Hematology & Oncology
DX: C50.111 Malignant neoplasm of central portion of right female breast (principal); Z17.0 Estrogen receptor positive status [ER+]; Z78.0 Asymptomatic menopausal state
CPT/HCPCS: 77080

== ENCOUNTER → 2021-10-25 | Outpatient (CLI) | payer BC ==
[~2021-10-25] MED LIST changes: -LISI-334 PO; +LISI20TA18 PO; -OMEP40CA45 PO; +OMEP40CA7 PO
--- NOTE | 2021-10-26 07:48 | KCIC ---
Exam: XR HAND_RIGHT 3 VIEWS History: Finger stiffness Comparison: None. Findings: Mildly decreased osseous mineralization. No fracture or dislocation is identified. No aggressive osse ous erosive process. There are mild degenerative changes of the interphalangeal joints. No focal soft tissue swelling. Impression: 1. Degenerative changes of the interphalangeal joints. No acute osseous abnormality. Electronically signed by: Eder Rosales MD (10/25/2021 5:02 PM) [id number]
== END ==
LOC: KCIC 13:04
PROVIDERS: ATTEND Family Medicine
DX: M19.031 Primary osteoarthritis, right wrist (principal); M25.649 Stiffness of unspecified hand, not elsewhere classified; M85.9 Disorder of bone density and structure, unspecified; M85.841 Other specified disorders of bone density and structure, right hand; M25.641 Stiffness of right hand, not elsewhere classified
CPT/HCPCS: 73130